=== PATIENT | male | born 2000 | race Caucasian/White ===

== ENCOUNTER 2018-04-11 10:43 | Observation (INO) | payer SELFPAY ==
[~2018-04-11] VITALS: Ht 172.7 cm; Wt 68.6 kg
[2018-04-11 11:15] VITALS: BP 139/85; PULSE 119; TEMP 98.7
[2018-04-11 12:31] LABS: HEMATOCRIT 50.3 % (36.0-47.0); HEMOGLOBIN 17.5 g/dl (12.5-16.1); MEAN CELL VOLUME 87 fl (80.0-95.0); MEAN CORPUSCULAR HEMOGLOBIN 30 pg (26.0-32.0); MEAN CORPUSCULAR HGB CONC 35 g/dl (33.0-37.0); MEAN PLATELET VOLUME 11.1 fl (7.4-10.4); PLATELET COUNT 287 K/mm3 (130-400); RED BLOOD COUNT 5.81 M/mm3 (4.20-5.60); REDCELL DISTRIBUTION WIDTH-CV 11.9 % (11.5-14.5)
[2018-04-11 12:42] LABS: CALCIUM 10.2 mg/dL (8.4-10.2); CREATININE, serum 1.05 mg/dL (0.66-1.25); POTASSIUM 4.4 mmol/L (3.4-5.0); TOTAL PROTEIN 8.6 gm/dL (6.4-8.2)
[2018-04-11 13:06] VITALS: PULSE 104
[2018-04-11 14:09] LABS: BAND 38 % (0-10); LYMPHOCYTE 6 % (20.0-51.0); NEUTROPHILS 45 % (42.0-75.2); PLATELET ESTIMATE NORMAL (NORMAL)
[2018-04-11 15:38] VITALS: BP 141/82; PULSE 95; TEMP 98.6
[2018-04-11 21:04] VITALS: BP 133/72; PULSE 83; TEMP 99.6
[2018-04-12 05:57] LABS: MEAN CELL VOLUME 87 fl (80.0-95.0); MEAN CORPUSCULAR HEMOGLOBIN 30 pg (26.0-32.0); MEAN CORPUSCULAR HGB CONC 35 g/dl (33.0-37.0); MEAN PLATELET VOLUME 11.4 fl (7.4-10.4); PLATELET COUNT 211 K/mm3 (130-400); RED BLOOD COUNT 4.59 M/mm3 (4.20-5.60)
[2018-04-12 06:02] LABS: HEMOGLOBIN 13.8 g/dl (12.5-16.1)
[2018-04-12 06:08] LABS: CREATININE, serum 0.94 mg/dL (0.66-1.25); POTASSIUM 3.9 mmol/L (3.4-5.0)
[2018-04-12 06:55] LABS: BAND 49 % (0-10); EOSINOPHIL 1 % (0-4); LYMPHOCYTE 15 % (20.0-51.0); METAMYELOCYTE 1 % (0-0); NEUTROPHILS 16 % (42.0-75.2); PLATELET ESTIMATE NORMAL (NORMAL)
[2018-04-12 08:34] VITALS: BP 119/57; PULSE 88; TEMP 98.9
[2018-04-12 15:28] VITALS: BP 124/62; PULSE 77; TEMP 97.7
[2018-04-12 21:14] VITALS: BP 137/70; PULSE 83; TEMP 98.8
[2018-04-13 00:17] VITALS: BP 130/74; PULSE 88; TEMP 98.7
[2018-04-13 03:14] VITALS: BP 122/71; PULSE 89; TEMP 98.4
[2018-04-13 08:50] VITALS: BP 132/69; PULSE 81; TEMP 98.1
[2018-04-13] MEDS ORDERED: COLACE 100100 MG/CAP PO (10:24)
[2018-04-13 11:53] VITALS: BP 133/74; PULSE 67; TEMP 97.7
== END 2018-04-13 13:35 | disposition home or self-care (01) ==
LOC: SURG 10:43
PROVIDERS: Surgery
DX: K56.7 Ileus, unspecified (principal); D75.1 Secondary polycythemia; R00.0 Tachycardia, unspecified
CPT/HCPCS: G0378; J7120; Q9967